=== PATIENT | female | born 2000 | race Caucasian/White ===

== ENCOUNTER 2021-12-27 10:43 | Inpatient (IN) | payer OTHER ==
[~2021-12-27] VITALS: Ht 170.2 cm; Wt 100.0 kg
[2021-12-27 11:18] LABS: BASOPHILS % (AUTO) 0.1 % (0-1); EOSINOPHILS % (AUTO) 0.1 % (0-6); HEMATOCRIT 45.1 % (35.0-45.0); HEMOGLOBIN 15.5 g/dl (12.0-16.0); LYMPHOCYTES # (AUTO) 1.2 X10'3 (1.1-4.8); LYMPHOCYTES % (AUTO) 6.8 % (21-51); MEAN CORPUSCULAR HEMOGLOBIN 29.5 PG (27.0-31.0); MEAN CORPUSCULAR HGB CONC 34.4 g/dL (33.0-36.5); MEAN CORPUSCULAR VOLUME 85.7 FL (78-98); MEAN PLATELET VOLUME 8.3 FL (7.4-10.4); MONOCYTES # (AUTO) 1.1 X10'3 (0-0.9); MONOCYTES % (AUTO) 6.1 % (2-12); NEUTROPHILS # (AUTO) 15.5 X10'3 (1.8-7.7); NEUTROPHILS % (AUTO) 86.9 % (42-75); PLATELET COUNT 395 X10'3 (140-440); RED BLOOD COUNT 5.26 X10'6 (4.20-5.60); RED CELL DISTRIBUTION WIDTH 13.6 % (11.5-14.5); WHITE BLOOD COUNT 17.9 X10'3 (4.5-11.0)
[2021-12-27 11:25] LABS: CLARITY,URINE CLOUDY (Clear); GLUCOSE, URINE NEGATIVE (Neg); KETONES,URINE TRACE mg/dl (Neg); LEUKOCYTE ESTERASE ,URINE NEGATIVE (Neg); NITRITES, URINE NEGATIVE (Neg); OCCULT BLOOD,URINE NEGATIVE (Neg); PROTEIN,URINE TRACE mg/dl (Neg); URINE HCG NEGATIVE (NEG)
[2021-12-27 11:35] LABS: COLOR,URINE AMBER (Yellow); UA COLLECTION TYPE CLN CATCH MIDSTREAM
[2021-12-27 11:37] LABS: BACTERIA,URINE 1+ /HPF (Neg); MUCUS STRANDS MODERATE /LPF (Neg); RBC,URINE 0-2 /HPF (0-2); SQUAMOUS EPITHELIAL CELL,UR MODERATE /LPF (FEW); WBC,URINE 0-4 /HPF (0-4)
[2021-12-27 11:37] LABS: ALANINE AMINOTRANSFERASE 980 U/L (12-78); ALKALINE PHOSPHATASE 304 IU/L (46-116); ANION GAP 14 (8-16); ASPARTATE AMINO TRANSFERASE 367 U/L (10-37); BILIRUBIN,TOTAL 4.9 MG/DL (0.1-1.0); BLOOD UREA NITROGEN 11 MG/DL (7-18); BUN/CREATININE RATIO 14.1 (6.6-38.0); CALCIUM 9.1 MG/DL (8.5-10.1); CHLORIDE 105 MMOL/L (99-107); CREATININE 0.78 MG/DL (0.40-0.90); GLUCOSE 154 MG/DL (70-104); POTASSIUM 4.2 MMOL/L (3.5-5.1); SODIUM 138 MMOL/L (135-145); TOTAL CARBON DIOXIDE 19.5 MMOL/L (24-32); eGFR > 90 ML/MIN
[2021-12-27 12:21] LABS: LIPASE 19175 U/L (73-393)
[2021-12-27] MEDS ORDERED: piperacillin/tazo 3.375gm/50ml 50 ML IV ONE (13:25)
[2021-12-27] MEDS ORDERED: normal saline 1000ML IV soln IV ONE (13:25)
[2021-12-27] MEDS ORDERED: morphine 4 MG/ML inj SYRINge IV ONE (13:35)
[2021-12-27] MEDS ORDERED: proCHLORperazine 10 MG/2 ml inj IV ONE (13:35)
[2021-12-27] MEDS ORDERED: ketorolac trometh. 30mg/ml inj. IV ONE (13:35)
[2021-12-27] MEDS ORDERED: famotidine/PF 10 mg/ml inj IV ONE (13:35)
[2021-12-27] MEDS ORDERED: NO HOME MEDS (14:35)
[2021-12-27] MEDS ORDERED: magnesium 4gm in 100ml NS 100 ML IV PRN (14:45)
[2021-12-27] MEDS ORDERED: mag hydrox/Alum hydrox/simeth 30ml oral suspension PO PRN (14:45)
[2021-12-27] MEDS ORDERED: acetaminophen 325mg tablet PO PRN (14:45)
[2021-12-27] MEDS ORDERED: potassium CL 10mEq/100ml bag 100 ML IV PRN (14:45)
[2021-12-27] MEDS ORDERED: magnesium hydroxide 30ml (MOM) UD suspension PO PRN (14:45)
[2021-12-27] MEDS ORDERED: magnesium 2GM in 50ml NS 50 ML IV PRN (14:45)
[2021-12-27] MEDS ORDERED: potassium Cl 20 mEq SR tablet PO PRN ×2 (14:45)
[2021-12-27] MEDS: morphine 2 MG/ML inj. syringe IV PRN ×2 (16:29→19:13)
[2021-12-27] MEDS: piperacillin/tazo 4.5gm/100ml 100 ML IV SCH ×2 (16:30→23:59)
[2021-12-27] MEDS: normal saline 1000ml 1,000 ML IV SCH ×3 (16:30→22:51)
[2021-12-27] MEDS: K and/or MAG REPLACEMENT MC SCH (18:43)
[2021-12-27] MEDS: docusate sod 100mg capsule PO SCH (18:59)
[2021-12-27] MEDS: ondansetron/PF 4mg/2ml inj IV PRN (19:31)
[2021-12-28] MEDS: ondansetron/PF 4mg/2ml inj IV PRN ×2 (00:12→11:59)
[2021-12-28 02:31] LABS: BASOPHILS % (AUTO) 0.2 % (0-1); EOSINOPHILS # (AUTO) 0.1 X10'3 (0-0.9); EOSINOPHILS % (AUTO) 0.9 % (0-6); HEMATOCRIT 35.2 % (35.0-45.0); HEMOGLOBIN 11.8 g/dl (12.0-16.0); LYMPHOCYTES # (AUTO) 1.4 X10'3 (1.1-4.8); LYMPHOCYTES % (AUTO) 14.4 % (21-51); MEAN CORPUSCULAR HEMOGLOBIN 29.4 PG (27.0-31.0); MEAN CORPUSCULAR HGB CONC 33.4 g/dL (33.0-36.5); MEAN CORPUSCULAR VOLUME 87.8 FL (78-98); MEAN PLATELET VOLUME 8.3 FL (7.4-10.4); MONOCYTES # (AUTO) 0.6 X10'3 (0-0.9); MONOCYTES % (AUTO) 6.1 % (2-12); NEUTROPHILS # (AUTO) 7.5 X10'3 (1.8-7.7); NEUTROPHILS % (AUTO) 78.4 % (42-75); PLATELET COUNT 254 X10'3 (140-440); RED BLOOD COUNT 4.01 X10'6 (4.20-5.60); WHITE BLOOD COUNT 9.6 X10'3 (4.5-11.0)
[2021-12-28 02:32] LABS: ALANINE AMINOTRANSFERASE 590 U/L (12-78); ALBUMIN 2.6 G/DL (3.4-5.0); ALBUMIN/GLOBULIN RATIO 0.8 (1.1-1.5); ALKALINE PHOSPHATASE 190 IU/L (46-116); ANION GAP 9 (8-16); ASPARTATE AMINO TRANSFERASE 164 U/L (10-37); BILIRUBIN,TOTAL 1.4 MG/DL (0.1-1.0); BLOOD UREA NITROGEN 10 MG/DL (7-18); BUN/CREATININE RATIO 16.1 (6.6-38.0); CALCIUM 7.4 MG/DL (8.5-10.1); CHLORIDE 109 MMOL/L (99-107); CHOL/HDL RATIO 4.9 (0.00-4.99); CHOLESTEROL 156 MG/DL (0-200); CREATININE 0.62 MG/DL (0.40-0.90); GLUCOSE 94 MG/DL (70-104); HDL CHOLESTEROL 32 MG/DL (35-60); LDL CHOLESTEROL 106 MG/DL (50-100); MAGNESIUM 1.9 MG/DL (1.5-2.4); POTASSIUM 3.8 MMOL/L (3.5-5.1); SODIUM 140 MMOL/L (135-145); TOTAL CARBON DIOXIDE 22.5 MMOL/L (24-32); TOTAL PROTEIN 5.7 G/DL (6.4-8.2); TRIGLYCERIDES 98 MG/DL (20-135); eGFR > 90 ML/MIN
[2021-12-28 02:55] LABS: LIPASE 4831 U/L (73-393)
[2021-12-28] MEDS: normal saline 1000ml 1,000 ML IV SCH ×5 (03:30→21:12)
[2021-12-28] MEDS: morphine 2 MG/ML inj. syringe IV PRN ×8 (04:14→21:58)
[2021-12-28] MEDS: docusate sod 100mg capsule PO SCH ×2 (08:00→21:12)
[2021-12-28] MEDS: K and/or MAG REPLACEMENT MC SCH ×2 (08:00→21:13)
[2021-12-28] MEDS ORDERED: clopidogrel 75mg tablet PO SCH (08:00)
--- NOTE | 2021-12-28 08:51 | NUR ---
PT TO MRI
[2021-12-28] MEDS: piperacillin/tazo 4.5gm/100ml 100 ML IV SCH ×2 (11:06→20:07)
[2021-12-28] MEDS ORDERED: morphine 2 MG/ML inj. syringe IV PRN (12:50)
--- NOTE | 2021-12-28 15:40 | NUR ---
Attempted call report to [facility] awaiting call back
--- NOTE | 2021-12-28 15:55 | NUR ---
[facility] call back at this time
[2021-12-28 22:00] VITALS: BP 119/64
[2021-12-29] VITALS: BP 141/83
[2021-12-29] MEDS: normal saline 1000ml 1,000 ML IV SCH ×5 (02:47→19:28)
--- NOTE | 2021-12-29 02:55 | NUR ---
PT IN er Addendum: 12/29/21 at 0255 by Michelle Faust RN Amended: Links added.
[2021-12-29] MEDS: morphine 2 MG/ML inj. syringe IV PRN (05:31)
[2021-12-29] MEDS: ondansetron/PF 4mg/2ml inj IV PRN ×2 (05:38→11:59)
--- NOTE | 2021-12-29 06:10 | NUR ---
Patient in room [facility]. I have received report from ROSA Martinez and had the opportunity to ask questions and assume patient care.
[2021-12-29 06:24] LABS: BASOPHILS % (AUTO) 0.1 % (0-1); EOSINOPHILS # (AUTO) 0.3 X10'3 (0-0.9); HEMATOCRIT 34.7 % (35.0-45.0); HEMOGLOBIN 11.6 g/dl (12.0-16.0); LYMPHOCYTES # (AUTO) 1.7 X10'3 (1.1-4.8); LYMPHOCYTES % (AUTO) 16.8 % (21-51); MEAN CORPUSCULAR HEMOGLOBIN 29.6 PG (27.0-31.0); MEAN CORPUSCULAR HGB CONC 33.5 g/dL (33.0-36.5); MEAN CORPUSCULAR VOLUME 88.5 FL (78-98); MEAN PLATELET VOLUME 8.4 FL (7.4-10.4); MONOCYTES # (AUTO) 0.7 X10'3 (0-0.9); MONOCYTES % (AUTO) 6.7 % (2-12); NEUTROPHILS # (AUTO) 7.5 X10'3 (1.8-7.7); NEUTROPHILS % (AUTO) 73.4 % (42-75); PLATELET COUNT 259 X10'3 (140-440); RED BLOOD COUNT 3.93 X10'6 (4.20-5.60); RED CELL DISTRIBUTION WIDTH 13.4 % (11.5-14.5); WHITE BLOOD COUNT 10.3 X10'3 (4.5-11.0)
[2021-12-29 06:31] LABS: ALANINE AMINOTRANSFERASE 438 U/L (12-78); ALBUMIN 2.8 G/DL (3.4-5.0); ALBUMIN/GLOBULIN RATIO 0.8 (1.1-1.5); ALKALINE PHOSPHATASE 170 IU/L (46-116); ANION GAP 8 (8-16); ASPARTATE AMINO TRANSFERASE 87 U/L (10-37); BILIRUBIN,TOTAL 1.2 MG/DL (0.1-1.0); BLOOD UREA NITROGEN 7 MG/DL (7-18); BUN/CREATININE RATIO 11.1 (6.6-38.0); CALCIUM 8.1 MG/DL (8.5-10.1); CHLORIDE 107 MMOL/L (99-107); CREATININE 0.63 MG/DL (0.40-0.90); GLUCOSE 67 MG/DL (70-104); LIPASE 678 U/L (73-393); MAGNESIUM 1.7 MG/DL (1.5-2.4); POTASSIUM 3.8 MMOL/L (3.5-5.1); SODIUM 138 MMOL/L (135-145); TOTAL CARBON DIOXIDE 22.8 MMOL/L (24-32); TOTAL PROTEIN 6.3 G/DL (6.4-8.2); eGFR > 90 ML/MIN
[2021-12-29 07:00] VITALS: BP 104/77
[2021-12-29] MEDS: docusate sod 100mg capsule PO SCH (07:16)
[2021-12-29] MEDS ORDERED: HYDROmorphone inj. 0.5 MG/0.5 ML DISP.SYRIN IV PRN (07:25)
[2021-12-29] MEDS: K and/or MAG REPLACEMENT MC SCH ×2 (08:00→19:10)
[2021-12-29] MEDS: HYDROmorphone 1 mg/ml syringe IV PRN ×4 (08:29→21:29)
[2021-12-29] MEDS: piperacillin/tazo 4.5gm/100ml 100 ML IV SCH ×3 (08:29→16:31)
[2021-12-29 11:00] VITALS: BP 117/63
[2021-12-29] MEDS ORDERED: diphenhydrAMINE 50 mg/ml inj IV PRN (14:45)
[2021-12-29] MEDS ORDERED: proCHLORperazine 10 MG/2 ml inj IV PRN (14:45)
[2021-12-29 18:30] VITALS: BP 105/57
[2021-12-30] VITALS: BP 117/64
[2021-12-30] MEDS: piperacillin/tazo 4.5gm/100ml 100 ML IV SCH ×4 (00:20→23:08)
[2021-12-30] MEDS: normal saline 1000ml 1,000 ML IV SCH ×4 (01:59→23:08)
[2021-12-30] MEDS: HYDROmorphone 1 mg/ml syringe IV PRN ×6 (03:33→23:18)
--- NOTE | 2021-12-30 06:06 | NUR ---
Patient in room [facility]. I have received report from Sylvia LEE and had the opportunity to ask questions and assume patient care.
--- NOTE | 2021-12-30 06:10 | NUR ---
Problems reprioritized. Patient report given, questions answered & plan of care reviewed with ROSA Silva.
[2021-12-30 06:40] LABS: ALANINE AMINOTRANSFERASE 292 U/L (12-78); ALBUMIN 2.5 G/DL (3.4-5.0); ALBUMIN/GLOBULIN RATIO 0.7 (1.1-1.5); ALKALINE PHOSPHATASE 139 IU/L (46-116); ANION GAP 9 (8-16); ASPARTATE AMINO TRANSFERASE 51 U/L (10-37); BLOOD UREA NITROGEN 4 MG/DL (7-18); BUN/CREATININE RATIO 6.8 (6.6-38.0); CALCIUM 7.9 MG/DL (8.5-10.1); CHLORIDE 106 MMOL/L (99-107); CREATININE 0.59 MG/DL (0.40-0.90); GLUCOSE 67 MG/DL (70-104); LIPASE 179 U/L (73-393); MAGNESIUM 1.6 MG/DL (1.5-2.4); POTASSIUM 3.5 MMOL/L (3.5-5.1); SODIUM 137 MMOL/L (135-145); TOTAL CARBON DIOXIDE 22.1 MMOL/L (24-32); TOTAL PROTEIN 5.9 G/DL (6.4-8.2); eGFR > 90 ML/MIN
[2021-12-30 06:43] LABS: BASOPHILS % (AUTO) 0.2 % (0-1); EOSINOPHILS # (AUTO) 0.3 X10'3 (0-0.9); EOSINOPHILS % (AUTO) 3.5 % (0-6); HEMATOCRIT 32.1 % (35.0-45.0); HEMOGLOBIN 10.8 g/dl (12.0-16.0); LYMPHOCYTES # (AUTO) 1.3 X10'3 (1.1-4.8); LYMPHOCYTES % (AUTO) 15.3 % (21-51); MEAN CORPUSCULAR HEMOGLOBIN 28.9 PG (27.0-31.0); MEAN CORPUSCULAR HGB CONC 33.5 g/dL (33.0-36.5); MEAN CORPUSCULAR VOLUME 86.2 FL (78-98); MEAN PLATELET VOLUME 8.2 FL (7.4-10.4); MONOCYTES # (AUTO) 0.7 X10'3 (0-0.9); MONOCYTES % (AUTO) 8.2 % (2-12); NEUTROPHILS # (AUTO) 6.2 X10'3 (1.8-7.7); NEUTROPHILS % (AUTO) 72.8 % (42-75); PLATELET COUNT 238 X10'3 (140-440); RED BLOOD COUNT 3.73 X10'6 (4.20-5.60); RED CELL DISTRIBUTION WIDTH 13.2 % (11.5-14.5); WHITE BLOOD COUNT 8.5 X10'3 (4.5-11.0)
[2021-12-30 07:00] VITALS: BP 119/62
[2021-12-30] MEDS: ondansetron/PF 4mg/2ml inj IV PRN (07:55)
[2021-12-30] MEDS: K and/or MAG REPLACEMENT MC SCH ×2 (08:00→20:00)
[2021-12-30 11:35] VITALS: BP 124/74
[2021-12-30 19:58] VITALS: BP 121/73
[2021-12-30 22:00] VITALS: BP 123/67
[2021-12-31 02:00] VITALS: BP 121/76
[2021-12-31] MEDS: ondansetron/PF 4mg/2ml inj IV PRN ×2 (02:19→16:04)
--- NOTE | 2021-12-31 02:50 | NUR ---
patient appears very anxious with regards surgery. Mother present at start of shift. patient showered. Iv resited to LFA. Patient given dilaudid q2-3hrs for pain 04/24. with good effect. c/o nausea medicated with zofran x1 also with good effect. will continue to monitor
[2021-12-31] MEDS: HYDROmorphone 1 mg/ml syringe IV PRN ×2 (04:15→07:51)
[2021-12-31] MEDS: normal saline 1000ml 1,000 ML IV SCH ×4 (04:16→23:56)
--- NOTE | 2021-12-31 05:47 | NUR ---
patient stated she is very anxious with regards surgery . Much time spent with patient listening and encouraging. patient had shower pre op checklist initiated. Dilaudid given for pain, patient sleeping at time of report.
[2021-12-31 06:00] VITALS: BP 118/73
--- NOTE | 2021-12-31 06:33 | NUR ---
Problems reprioritized. Patient report given, questions answered & plan of care reviewed with Kika LEE.
[2021-12-31 06:34] LABS: BASOPHILS % (AUTO) 0.5 % (0-1); EOSINOPHILS # (AUTO) 0.2 X10'3 (0-0.9); HEMATOCRIT 31.6 % (35.0-45.0); HEMOGLOBIN 10.7 g/dl (12.0-16.0); LYMPHOCYTES # (AUTO) 1.6 X10'3 (1.1-4.8); LYMPHOCYTES % (AUTO) 27.2 % (21-51); MEAN CORPUSCULAR HEMOGLOBIN 29.1 PG (27.0-31.0); MEAN CORPUSCULAR HGB CONC 33.9 g/dL (33.0-36.5); MEAN CORPUSCULAR VOLUME 85.9 FL (78-98); MEAN PLATELET VOLUME 8.4 FL (7.4-10.4); MONOCYTES # (AUTO) 0.6 X10'3 (0-0.9); NEUTROPHILS # (AUTO) 3.3 X10'3 (1.8-7.7); NEUTROPHILS % (AUTO) 58.3 % (42-75); PLATELET COUNT 229 X10'3 (140-440); RED BLOOD COUNT 3.68 X10'6 (4.20-5.60); WHITE BLOOD COUNT 5.7 X10'3 (4.5-11.0)
--- NOTE | 2021-12-31 06:43 | NUR ---
Patient in room [facility]014. I have received report from Shira LEE and had the opportunity to ask questions and assume patient care.
[2021-12-31 06:52] LABS: ALANINE AMINOTRANSFERASE 207 U/L (12-78); ALBUMIN 2.4 G/DL (3.4-5.0); ALBUMIN/GLOBULIN RATIO 0.7 (1.1-1.5); ALKALINE PHOSPHATASE 121 IU/L (46-116); ANION GAP 10 (8-16); ASPARTATE AMINO TRANSFERASE 35 U/L (10-37); BILIRUBIN,TOTAL 0.8 MG/DL (0.1-1.0); BLOOD UREA NITROGEN 2 MG/DL (7-18); BUN/CREATININE RATIO 3.7 (6.6-38.0); CALCIUM 8.1 MG/DL (8.5-10.1); CHLORIDE 108 MMOL/L (99-107); CREATININE 0.54 MG/DL (0.40-0.90); GLUCOSE 88 MG/DL (70-104); LIPASE 183 U/L (73-393); MAGNESIUM 1.4 MG/DL (1.5-2.4); POTASSIUM 3.5 MMOL/L (3.5-5.1); SODIUM 143 MMOL/L (135-145); TOTAL CARBON DIOXIDE 24.7 MMOL/L (24-32); TOTAL PROTEIN 5.8 G/DL (6.4-8.2); eGFR > 90 ML/MIN
[2021-12-31] MEDS: piperacillin/tazo 4.5gm/100ml 100 ML IV SCH ×3 (07:54→23:56)
[2021-12-31] MEDS: K and/or MAG REPLACEMENT MC SCH ×2 (08:18→19:33)
[2021-12-31 10:02] VITALS: BP 107/59
[2021-12-31] MEDS ORDERED: famotidine/PF 10 mg/ml inj IV ONE (10:40)
[2021-12-31] MEDS: morphine 2 MG/ML inj. syringe IV PRN ×4 (11:18→22:35)
[2021-12-31] MEDS ORDERED: ringers solution, lacted 1,000 ML IV ONE (17:50)
[2021-12-31 18:00] VITALS: BP 103/76
[2021-12-31] MEDS ORDERED: potassium Cl 20 mEq SR tablet PO PRN (18:30)
[2021-12-31] MEDS ORDERED: magnesium Cl slow-release 64mg tablet PO PRN (18:30)
--- NOTE | 2021-12-31 18:33 | NUR ---
Patient in room [facility]014. I have received report from Kika LEE and had the opportunity to ask questions and assume patient care.
--- NOTE | 2021-12-31 18:33 | NUR ---
Problems reprioritized. Patient report given, questions answered & plan of care reviewed with TEE LEE.
[2021-12-31 19:11] LABS: MAGNESIUM 1.4 MG/DL (1.5-2.4); POTASSIUM 3.4 MMOL/L (3.5-5.1)
[2021-12-31 22:00] VITALS: BP 109/70
[2022-01-01] VITALS (25 sets, daily range): BP systolic 96–169; BP diastolic 39–115
[2022-01-01] MEDS: normal saline 1000ml 1,000 ML IV SCH ×3 (05:37→18:18)
[2022-01-01] MEDS: morphine 2 MG/ML inj. syringe IV PRN ×2 (05:42→19:38)
[2022-01-01] MEDS ORDERED: famotidine 20mg tablet PO ONE (06:00)
[2022-01-01 06:13] LABS: BASOPHILS # (AUTO) 0.1 X10'3 (0-0.2); BASOPHILS % (AUTO) 0.9 % (0-1); EOSINOPHILS # (AUTO) 0.3 X10'3 (0-0.9); EOSINOPHILS % (AUTO) 5.1 % (0-6); HEMATOCRIT 34.1 % (35.0-45.0); HEMOGLOBIN 11.7 g/dl (12.0-16.0); LYMPHOCYTES % (AUTO) 33.9 % (21-51); MEAN CORPUSCULAR HEMOGLOBIN 29.5 PG (27.0-31.0); MEAN CORPUSCULAR HGB CONC 34.2 g/dL (33.0-36.5); MEAN CORPUSCULAR VOLUME 86.2 FL (78-98); MEAN PLATELET VOLUME 8.2 FL (7.4-10.4); MONOCYTES # (AUTO) 0.6 X10'3 (0-0.9); MONOCYTES % (AUTO) 9.5 % (2-12); NEUTROPHILS # (AUTO) 2.9 X10'3 (1.8-7.7); NEUTROPHILS % (AUTO) 50.6 % (42-75); PLATELET COUNT 285 X10'3 (140-440); RED BLOOD COUNT 3.96 X10'6 (4.20-5.60); RED CELL DISTRIBUTION WIDTH 13.2 % (11.5-14.5); WHITE BLOOD COUNT 5.8 X10'3 (4.5-11.0)
--- NOTE | 2022-01-01 06:32 | NUR ---
Problems reprioritized. Patient report given, questions answered & plan of care reviewed with Francisco LEE.
[2022-01-01 06:35] LABS: ALANINE AMINOTRANSFERASE 177 U/L (12-78); ALBUMIN 2.8 G/DL (3.4-5.0); ALBUMIN/GLOBULIN RATIO 0.8 (1.1-1.5); ALKALINE PHOSPHATASE 127 IU/L (46-116); ANION GAP 10 (8-16); ASPARTATE AMINO TRANSFERASE 31 U/L (10-37); BILIRUBIN,TOTAL 0.7 MG/DL (0.1-1.0); BLOOD UREA NITROGEN 2 MG/DL (7-18); BUN/CREATININE RATIO 3.2 (6.6-38.0); CALCIUM 8.8 MG/DL (8.5-10.1); CHLORIDE 107 MMOL/L (99-107); CREATININE 0.62 MG/DL (0.40-0.90); GLUCOSE 85 MG/DL (70-104); LIPASE 257 U/L (73-393); MAGNESIUM 1.5 MG/DL (1.5-2.4); POTASSIUM 3.6 MMOL/L (3.5-5.1); SODIUM 144 MMOL/L (135-145); TOTAL CARBON DIOXIDE 26.7 MMOL/L (24-32); TOTAL PROTEIN 6.4 G/DL (6.4-8.2); eGFR > 90 ML/MIN
--- NOTE | 2022-01-01 06:44 | NUR ---
Received report, assumed care. Pt appears to be asleep. Call light in reach, bed low, rails up x3. no s/s of complications
[2022-01-01] MEDS: piperacillin/tazo 4.5gm/100ml 100 ML IV SCH (07:37)
[2022-01-01] MEDS: K and/or MAG REPLACEMENT MC SCH ×2 (07:38→19:29)
--- NOTE | 2022-01-01 08:43 | NUR ---
Initial: Pt admitted w/ acute pancreatitis secondary to gallstones, and transaminitis per EMR, plan is for lap cholecystectomy today per MD note. Started on Clear liquids 12/30 of which pt has consumed mostly 50% of, not meeting needs. Recommend advancing to Regular diet s/p procedure once medically indicated. LBM 12/31. Limited nutrition interventions available at this time, will continue to monitor. Recs: 1. Advance to Regular diet once medically appropriate 2. Bowel care per MD 3. Scaled wts Addendum: 01/01/22 at [address] Amended: Links added.
[2022-01-01] MEDS ORDERED: labetalol 20mg/4ml (5mg/ml) syringe IV PRN (09:35)
[2022-01-01] MEDS ORDERED: ondansetron/PF 4mg/2ml inj IV PRN (09:35)
[2022-01-01] MEDS ORDERED: morphine 2 MG/ML inj. syringe IV PRN (09:35)
[2022-01-01] MEDS ORDERED: fentaNYL/PF 50MCG/1 ML 2ML syringe IV PRN ×2 (09:35)
[2022-01-01] MEDS ORDERED: ringers solution, lacted 1,000 ML IV SCH (09:35)
[2022-01-01] MEDS ORDERED: hydrALAZINE 20mg/ml inj. IV PRN (09:35)
[2022-01-01] MEDS ORDERED: INDOCYANINE GREEN 25 MG/10 ML VIAL IV ONE (11:50)
--- NOTE | 2022-01-01 13:58 | NUR ---
Student documentation: I have reviewed and agree with all interventions, assessments performed and documented by MICHAEL High Student. Addendum: 01/01/22 at 1400 by Najma Garg SS Amended: Links added.
[2022-01-01] MEDS ORDERED: dexamethasone sod phosphate 4mg/ml inj. ONE (14:31)
[2022-01-01] MEDS ORDERED: glycopyrrolate 0.2mg/ml inj ONE (14:31)
[2022-01-01] MEDS ORDERED: sevoflurane 250ml liquid IH ONE (14:31)
[2022-01-01] MEDS ORDERED: neostigmine methylsulfate 1 MG/ML 10ml vial ONE (14:31)
[2022-01-01] MEDS ORDERED: ondansetron/PF 4mg/2ml inj ONE ×2 (14:31→14:47)
[2022-01-01] MEDS ORDERED: FENTANYL CITRATE/PF 50 MCG/1 ML VIAL ONE (14:39)
[2022-01-01] MEDS ORDERED: midazolam 1 mg/ML 2ml injection ONE (14:39)
[2022-01-01] MEDS ORDERED: propofol inj 20 ML IV ONE (14:41)
[2022-01-01] MEDS ORDERED: rocuronium 10mg/ml inj IV ONE (14:41)
[2022-01-01] MEDS ORDERED: LIDOcaine 2% (20mg/ml) 5ml vial ONE (14:41)
--- NOTE | 2022-01-01 14:44 | NUR ---
patient taken to OR, Surgical staff arrived on floor with out prior notice, I offered to get VS and BG before transport, staff member told me not to do it, they are leaving now!
[2022-01-01] MEDS ORDERED: LIDOcaine 1% 30ml preserv. free vial ONE (14:50)
[2022-01-01] MEDS ORDERED: BUPIVAcaine 0.5% inj/PF 30 ML ONE (14:50)
[2022-01-01] MEDS ORDERED: labetalol 20mg/4ml (5mg/ml) syringe IV ONE (14:59)
[2022-01-01] MEDS ORDERED: BUPIVAcaine 0.5% inj/PF 30 ml vial IJ ONE (15:00)
[2022-01-01] MEDS ORDERED: naloxone 0.4 mg/ml inj IV PRN (15:45)
--- NOTE | 2022-01-01 15:48 | NUR ---
Received from OR via BED IN STABLE CONDITION , accompanied by Anesthesiologist and DIRECTOR OF STUDENT AID report given by DIRECTOR OF STUDENT AID AND Anesthesiolgist. Addendum: 01/01/22 at 1629 by Katelyn Caraballo RN Amended: Links added.
[2022-01-01] MEDS ORDERED: piperacillin/tazo 3.375gm/50ml 50 ML IV SCH (16:00)
[2022-01-01] MEDS: morphine 4 MG/ML inj SYRINge IV PRN ×2 (16:01→16:24)
[2022-01-01] MEDS: oxyCODONE/APAP 5-325mg tablet PO PRN ×2 (16:23→20:34)
[2022-01-01] MEDS ORDERED: HYDROmorphone/PF 0.2 MG/ML SYRINGE IV PRN (16:50)
[2022-01-01] MEDS: HYDROmorphone/PF 0.2 MG/ML SYRINGE IV PRN ×2 (17:02→17:24)
--- NOTE | 2022-01-01 17:45 | NUR ---
break relief Ivan RN took report form recovery on patient. reported to be stable now with acceptable pain. No BP issues and scheduled antibiotics given in recovery.
--- NOTE | 2022-01-01 17:58 | NUR ---
PATIENT DISCHARGED FROM PACU IN STABLE CONDITION AFTER REPORT GIVEN TO ELVIS LEE. PATIENT TRANSFERRED TO ROOM [facility] VIA BED WITH ROSA AND RIO Addendum: 01/01/22 at 1827 by Katelyn Caraballo RN Amended: Links added.
--- NOTE | 2022-01-01 18:04 | NUR ---
patient arrived to floor, per Recovery nurse Stefany RN there was an offirmev and Ketorolac given by anesthiologist that is not documented, I requested get it documented
--- NOTE | 2022-01-01 18:11 | NUR ---
clarification, Offirmev not given, 30 Mg ketoralac given and is on anesthesia report
--- NOTE | 2022-01-01 18:20 | NUR ---
Problems reprioritized. Patient report given, questions answered & plan of care reviewed with Daina LEE.
--- NOTE | 2022-01-01 18:28 | NUR ---
Patient in room [facility]014. I have received report from Benny LEE and had the opportunity to ask questions and assume patient care.
[2022-01-02 02:00] VITALS: BP 99/43
[2022-01-02 02:05] VITALS: BP 125/85
[2022-01-02] MEDS: oxyCODONE/APAP 5-325mg tablet PO PRN ×3 (02:06→12:25)
[2022-01-02] MEDS: normal saline 1000ml 1,000 ML IV SCH ×2 (04:00→10:13)
[2022-01-02] MEDS: morphine 2 MG/ML inj. syringe IV PRN (04:26)
--- NOTE | 2022-01-02 05:47 | NUR ---
Post op vs can be seen under regular vital signs.
--- NOTE | 2022-01-02 06:49 | NUR ---
Problems reprioritized. Patient report given, questions answered & plan of care reviewed with Ivan RN.
--- NOTE | 2022-01-02 07:03 | NUR ---
Patient in room [facility]014. I have received report from Daina LEE and had the opportunity to ask questions and assume patient care.
[2022-01-02 07:18] VITALS: BP 114/57
[2022-01-02] MEDS: K and/or MAG REPLACEMENT MC SCH (08:00)
[2022-01-02 10:00] VITALS: BP 123/70
[2022-01-02] MEDS ORDERED: OXYC-145 PO (12:14)
--- NOTE | 2022-01-02 12:58 | NUR ---
PAGER ID: [phone] MESSAGE: Ivan Surg [id number] Re: [id number] Astrid Was Dr. Williams de with the discharge of this patient?
--- NOTE | 2022-01-02 14:00 | NUR ---
Patient left with all belonings at discharge. Patient left with father who was in room for discharge. Patient expressed verbal understanding of discharge teaching. Patient IV was taken out at this time by student nurse and canula was whole and intact upon inspection. Patient showed minimal bleeding from site. Patient taken down in wheelchair at this time. Transported home in private vehicle.
== END 2022-01-02 14:59 | disposition home or self-care (01) | DRG 417 ==
LOC: ER 10:44 → ED HOLD 14:49 → SUR 3N 12-28 21:39 → ORTHO 4S 12-30 17:32
PROVIDERS: ADMIT Family Medicine; ATTEND Family Medicine
PROC: BF532Z0 Other Imaging of Gallbladder and Bile Ducts using Fluorescing Agent, Intraoperative (ICD-10-PCS; 2022-01-01)
PROC: 8E0W4CZ Robotic Assisted Procedure of Trunk Region, Percutaneous Endoscopic Approach (ICD-10-PCS; 2022-01-01)
PROC: 0FT44ZZ Resection of Gallbladder, Percutaneous Endoscopic Approach (ICD-10-PCS; principal; 2022-01-01 14:31)
DX: K80.60 Calculus of gallbladder and bile duct with cholecystitis, unspecified, without obstruction (principal); K85.10 Biliary acute pancreatitis without necrosis or infection; R74.01 Elevation of levels of liver transaminase levels; E66.9 Obesity, unspecified; K82.8 Other specified diseases of gallbladder; Z82.3 Family history of stroke; Z83.3 Family history of diabetes mellitus; Z68.34 Body mass index [BMI] 34.0-34.9, adult
CPT/HCPCS: 99285; Z7506; Z7508; 36415; 74176; 74181; 76700; 80053; 80061; 81001; 81025; 83605; 83690; 83735; 84132; 84145; 85025; 87040; 87081; 93005; A4215; A4618; A7000; G0378; J0780; J1100; J1170; J1885; J2250; J2270; J2405; J2543; J2704; J2710; J3010; J3490; J7030; J7120; S0020